=== PATIENT | female | born 2000 | race Caucasian/White ===

== ENCOUNTER 2020-11-25 10:07 | Emergency (ER) | payer OTHER ==
[~2020-11-25] VITALS: Ht 167.6 cm; Wt 72.6 kg
[2020-11-25 10:31] VITALS: BP 117/75
== END 2020-11-25 10:36 | disposition home or self-care (01) ==
LOC: M.ERS 10:07
DX: Z01.419 Encounter for gynecological examination (general) (routine) without abnormal findings (principal)